=== PATIENT | male | born 2005 | race Caucasian/White ===

== ENCOUNTER 2024-12-15 13:26 | Emergency (ER) | payer SELFPAY ==
[2024-12-15 13:38] VITALS: BP 117/70
[2024-12-15 13:46] VITALS: BMI 22.3
--- NOTE | 2024-12-15 14:01 | ED.SKININJ ---
HPI-Injury
General
Chief Complaint: Head Injury
Source: patient and family
Exam Limitations: developmental stage
Time Seen by Provider: 12/15/24 13:45
Nursing documentation reviewed up to this point in time: agreed with
History of Present Illness-Injury
Is this injury a work related problem?: No
Is pt an associate of [facility]?: No
Initial Injury comments:
2 cm laceration to the back of the head specialist 19-year-old something fell on his head acting normally no blood thinners per the father. Just prior to arrival
Past History
Past History
ED Past Medical History: Psychiatric
Social History
Tobacco: Non-smoker
Alcohol: None
Drug: None
Personal: Single
Living: with family
Employment: Student
Review of Systems
Review of Systems
Unable to obtain full review of systems at this time due to: other (Special needs)
Other source history: family
All Other Systems: Not applicable
Phy Exam
Physical Exam
Physical Exam:
Physical Exam
General: Special needs appearing male watching TV no acute distress
Neck: Right posterior scalp 2 cm full-thickness laceration pupils round and reactive
Lungs: no acute respiratory distress. clear bilaterally
Neuro: Moves all extremity
Skin: no rash
Psychiatric: Cooperative
Extremities: no edema.
Course
Orders/Labs/Results
Orders:
Orders
12/15/24 13:59
Lidocaine/Epinephrine/Tetracai [Let Topical Anesthetic Gel] 3 ml .ROUTE .STK-MED ONE
Vital Signs
Initial and Last Documented VS:
Initial Vital Signs
Temp Pulse Resp BP Pulse Ox
98.2 F 69 16 117/70 96
12/15/24 13:38 12/15/24 13:38 12/15/24 13:38 12/15/24 13:38 12/15/24 13:38
Last Documented Vital Signs
Temp Pulse Resp BP Pulse Ox
98.2 F 69 16 117/70 96
12/15/24 13:38 12/15/24 13:38 12/15/24 13:38 12/15/24 13:38 12/15/24 13:38
Procedures
Laceration Closure
Right scalp:
Status of Wound: clean
Size of Wound in cm: 2
Description of Wound Edges: sharp
Preparation: cleaned with saline
Anesthesia: 1% Lidocaine with epi
Revision/Debridement: routine- no revision
Wound exploration: explored to base- no FB
Type of Closure: single layer closure
Skin Closure Material: 3-0 nylon and 3-0 prolene
Number of sutures: 2
*Critical Care Note
Total Time (30-74mins, 75-104mins- exclusive of procedures): Not Applicable
Update Note
Update Note:
Update child at his baseline test states tetanus up-to-date wound closed
ED Attending Note
-
Portions of this chart may have been created with voice recognition software.� Occasional wrong word or��sound alike� substitutions may have occurred due to the inherent limitations of voice recognition software.
Discharge Plan
Departure
Patient Disposition: Home (Routine Discharge)
Date of Disposition: 12/15/24
Time of Disposition: 14:13
Patient with high blood pressure during this ER visit?: No
Condition: Good
Discharge Problem:
Laceration
Instructions: Laceration Repair With Stitches (DC), Minor Head Injury (DC)
Prescriptions:
No Action
No Current Medications
0
Activity Restrictions/Additional Instructions:
Stitches out in 10 days primary care provider or the ER
Interventions
Interventions:
*Risk Screen - Suicide Last Done: 12/15/24 13:38
*General Assessment Last Done: 12/15/24 13:46
*Neglect/Abuse Screening Last Done: 12/15/24 13:38
*ED- Fall Risk Assessment Last Done: 12/15/24 13:46
*ED COVID-19 Vaccine History Last Done: 12/15/24 13:46
ED- Neurological Assessment Last Done: 12/15/24 13:46
ED-Skin Assessment Last Done: 12/15/24 13:46
Discharge Date and Time
Print Language: SPANISH
== END 2024-12-15 14:30 | disposition home or self-care (01) ==
LOC: EMR 13:26
PROVIDERS: EMERGENCY PHYSICIAN Emergency Medicine
DX: S01.01XA Laceration without foreign body of scalp, initial encounter (principal); W20.8XXA Other cause of strike by thrown, projected or falling object, initial encounter
CPT/HCPCS: 12001; 99282